=== PATIENT | male | born 1980 | race Caucasian/White ===

== ENCOUNTER 2021-06-20 19:28 | Emergency (ER) | payer OTHER ==
[~2021-06-20] VITALS: Ht 172.7 cm; Wt 88.5 kg
[~2021-06-20 19:28] MED LIST: BACTRIM PO; HYDROCODONE-AP1 EA11 PO; MINOCYCLINE HC100 M2 PO; MULTIPLE VITAM1 EAC3 PO; SYNTHROID112 MCG PO
[2021-06-20] MEDS ORDERED: TESTOSTERO200 MG/1 M IM (19:42)
[2021-06-20] MEDS ORDERED: ARIMIDEX1 MG PO (19:42)
[2021-06-20 20:05] LABS: ABSOLUTE BASOPHILS 0.1 thou/uL (0.0-0.2); ABSOLUTE EOSINOPHILS 0.2 thou/uL (0.0-0.7); ABSOLUTE LYMPHOCYTES 1.7 thou/uL (0.8-5.3); ABSOLUTE MONOCYTES 0.5 thou/uL (0.0-1.2); BASOPHILS 1.1 %; EOSINOPHILS 1.9 %; LYMPHOCYTES 16.4 %; MCH 32.4 pg (26.0-34.0); MCHC 34.8 g/dL (28.0-37.0); MCV 93.1 fL (80.0-100.0); MONOCYTES 5.1 %; MPV 8.6 fl. (7.2-11.1); NUCLEATED RBCS 0 /100WBC; PLATELET COUNT* 275 thou/uL (150-400); POLYS 75.5 %; RBC 4.94 mil/uL (4.50-6.00); RDW-CV 11.9 % (10.5-14.5); WBC 10.6 thou/uL (4.0-11.0)
[2021-06-20 20:13] LABS: CALCIUM 8.6 mg/dL (8.5-10.1); CREATININE 1.1 mg/dL (0.6-1.3); POTASSIUM 3.6 mmol/L (3.5-5.1)
[2021-06-20 20:18] LABS: ALBUMIN 3.8 g/dL (3.4-5.0); TOTAL BILIRUBIN 0.3 mg/dL (<0.1-1.0); TOTAL PROTEIN 7.5 g/dL (6.4-8.2)
[2021-06-20] MEDS ORDERED: CEPHALEXIN500 MG PO (20:23)
[2021-06-20 22:16] VITALS: BP 134/86
== END 2021-06-20 22:19 | disposition home or self-care (01) ==
LOC: M.ERS 19:28
PROVIDERS: Physician Assistant
DX: L02.415 Cutaneous abscess of right lower limb (principal); E03.9 Hypothyroidism, unspecified; Z79.899 Other long term (current) drug therapy; Z88.2 Allergy status to sulfonamides